=== PATIENT | male | born 1965 | race Caucasian/White ===

== ENCOUNTER → 2017-08-18 | Outpatient (CLI) | payer BC ==
[2017-08-18 13:22] LABS: HEMOGLOBIN A1C 5.3 % (4.5-5.6)
[2017-08-18 13:37] LABS: ALBUMIN 3.9 gm/dl (3.4-5.0); ALKALINE PHOSPHATASE 63 U/L (45-117); ALT/SGPT 25 U/L (12-78); AST/SGOT 22 U/L (15-37); BLOOD UREA NITROGEN 17 mg/dl (7-18); CALCIUM 8.4 mg/dl (8.5-10.1); CARBON DIOXIDE 25 mmol/L (21-32); CHOLESTEROL 157 mg/dl (0-200); CREATININE 1.06 mg/dl (0.60-1.40); GLUCOSE 98 mg/dl (70-99); LDL CHOLESTEROL CALCULATED 94 mg/dl; POTASSIUM 3.7 mmol/L (3.5-5.1); SODIUM 139 mmol/L (136-145); TOTAL PROTEIN 7.2 gm/dl (6.4-8.2)
== END | disposition home or self-care (01) ==
LOC: C.LABPVFM 07:37
PROVIDERS: ATTEND Family Medicine
DX: R05 Cough (principal)